=== PATIENT | female | born 1960 | race Caucasian/White ===

== ENCOUNTER 2021-10-09 18:26 | Emergency (ER) | payer SELFPAY ==
[~2021-10-09] VITALS: Ht 172.7 cm; Wt 159.6 kg
--- NOTE | 2021-10-09 18:35 | ED General ---
General Chief Complaint: Respiratory Problems Stated Complaint: SOB History of Present Illness Date Seen by Provider: Oct 09, 2021 Time Seen by Provider: 18:35 Initial Comments 60-year-old female presents with cough, wheezing and shortness of breath. Patient has known COPD. She used inhaler around noon today. She reports over the last 3 days she has been moving and symptoms of gotten worse. Patient reports that she is feeling a little bit of chest tightness that was worse yesterday of little bit today. Patient denies any fevers or chills. No nausea or vomiting. Patient continues to smoke a pack cigarettes a day with additional frequent marijuana use. Allergies and Home Medications Allergies Coded Allergies: No Known Drug Allergies (Unverified , 10/09/21) Patient Home Medication List Home Medication List Reviewed: Yes Review of Systems Review of Systems Constitutional: No chills, No diaphoresis, No fever Respiratory: cough, short of breath, wheezing Cardiovascular: chest pain Gastrointestinal: no symptoms reported Genitourinary: no symptoms reported Musculoskeletal: no symptoms reported Skin: no symptoms reported Psychiatric/Neurological: No Symptoms Reported Hematologic/Lymphatic: No Symptoms Reported Physical Exam Vital Signs Vital Signs - First Documented 10/09/21 18:30 Temp 35.4 Pulse 100 Resp 22 B/P (MAP) 137/108 (118) Pulse Ox 96 O2 Delivery Room Air Capillary Refill : Height, Weight, BMI Height: '" Weight: lbs. oz. 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 Skin: Normal Color, Warm/Dry Progress/Results/Core Measures Suspected Sepsis SIRS Temperature: Pulse: Respiratory Rate: Laboratory Tests 10/09/21 18:55: White Blood Count 8.6 Blood Pressure / Mean: Laboratory Tests 10/09/21 18:55: Creatinine 0.87, Platelet Count 299, Total Bilirubin 0.5 Results/Orders Lab Results Laboratory Tests Test 10/09/21 18:55 Range/Units White Blood Count 8.6 4.3-11.0 10^3/uL Red Blood Count 4.83 3.80-5.11 10^6/uL Hemoglobin 15.1 11.5-16.0 g/dL Hematocrit 45 35-52 % Mean Corpuscular Volume 93 80-99 fL Mean Corpuscular Hemoglobin 31 25-34 pg Mean Corpuscular Hemoglobin Concent 34 32-36 g/dL Red Cell Distribution Width 13.1 10.0-14.5 % Platelet Count 299 130-400 10^3/uL Mean Platelet Volume 10.5 9.0-12.2 fL Immature Granulocyte % (Auto) 0 % Neutrophils (%) (Auto) 64 42-75 % Lymphocytes (%) (Auto) 27 12-44 % Monocytes (%) (Auto) 6 0-12 % Eosinophils (%) (Auto) 3 0-10 % Basophils (%) (Auto) 1 0-10 % Neutrophils # (Auto) 5.5 1.8-7.8 X 10^3 Lymphocytes # (Auto) 2.3 1.0-4.0 X 10^3 Monocytes # (Auto) 0.5 0.0-1.0 X 10^3 Eosinophils # (Auto) 0.2 0.0-0.3 10^3/uL Basophils # (Auto) 0.1 0.0-0.1 10^3/uL Immature Granulocyte # (Auto) 0.0 0.0-0.1 10^3/uL Sodium Level 135 135-145 MMOL/L Potassium Level 4.9 3.6-5.0 MMOL/L Chloride Level 102 98-107 MMOL/L Carbon Dioxide Level 24 21-32 MMOL/L Anion Gap 9 5-14 MMOL/L Blood Urea Nitrogen 9 7-18 MG/DL Creatinine 0.87 0.60-1.30 MG/DL Estimat Glomerular Filtration Rate 67 BUN/Creatinine Ratio 10 Glucose Level 110 H 70-105 MG/DL Calcium Level 9.0 8.5-10.1 MG/DL Corrected Calcium 9.3 8.5-10.1 MG/DL Total Bilirubin 0.5 0.1-1.0 MG/DL Aspartate Amino Transf (AST/SGOT) 17 5-34 U/L Alanine Aminotransferase (ALT/SGPT) 10 0-55 U/L Alkaline Phosphatase 99 40-136 U/L Troponin I < 0.30 <0.30 NG/ML Total Protein 7.9 6.4-8.2 GM/DL Albumin 3.6 3.2-4.5 GM/DL My Orders Orders - DINA OSUNA DO Cbc With Automated Diff (10/09/21 18:38) Comprehensive Metabolic Panel (10/09/21 18:38) Troponin I Fs (10/09/21 18:38) Ekg Tracing (10/09/21 18:38) Monitor-Rhythm Ecg Trace Only (10/09/21 18:38) Albuterol/Ipra Inhalation Soln (Duoneb I (10/09/21 18:45) Svn Small Volume Nebulizer (10/09/21 18:38) Chest Pa/Lat (2 View) (10/09/21 18:38) Medications Given in ED Current Medications Medications Dose Ordered Sig/Abdi Route Start Time Stop Time Status Last Admin Dose Admin Albuterol/ Ipratropium 3 ml ONCE ONCE INH 10/09/21 18:45 10/09/21 18:46 DC 10/09/21 18:52 3 ML Vital Signs/I&O 10/09/21 10/09/21 18:30 19:15 Temp 35.4 Pulse 100 92 Resp 22 18 B/P (MAP) 137/108 (118) 153/87 Pulse Ox 96 95 O2 Delivery Room Air Room Air Capillary Refill : Progress Note : Progress Note Patient with no acute findings on her EKG or labs with a negative troponin. Patient symptoms been gone for couple days. Is very consistent with a COPD exacerbation. I will prescribe her prednisone and azithromycin. She should use her inhaler as needed. She is stable and discharged home ECG Initial ECG Impression Date: Oct 09, 2021 Initial ECG Impression Time: 18:47 Initial ECG Rate: 101 Initial ECG Rhythm: S.Tach Initial ECG Intervals: Normal Comment mild sinus tach, no st changes, normal ekg Diagnostic Imaging Diagonstic Imaging: Xray Plain Films/CT/US/NM/MRI: chest Comments CHEST PA/LAT (2 VIEW) EXAMINATION: Chest (PA and lateral). CLINICAL INDICATION: 60-year-old female, shortness breath, chest tightness. COMPARISON: None. FINDINGS: Heart size and mediastinal contours are unremarkable. There is no identified pneumothorax. There is no pleural effusion. There is no identified focal airspace consolidation. IMPRESSION: No identified acute cardiopulmonary abnormality. Reviewed: Reviewed by Me, Reviewed/Discussed Departure Impression Primary Impression: COPD with exacerbation Disposition: HOME, SELF-CARE Condition: Stable Departure-Patient Inst. Referrals: MILLY GAY DO (PCP/Family) Primary Care Physician Patient Instructions: Risk Factors for COPD, COPD Exacerbation, Adult ED Add. Discharge Instructions: Use your inhaler every 4 hours while awake for 24 hours then as needed Follow-up with your primary care provider as needed if symptoms not improving in the next 3 to 4 days All discharge instructions reviewed with patient and/or family. Voiced understanding. Scripts Prednisone (Prednisone) 20 Mg Tab 40 MG PO DAILY, #6 TAB 0 Refills Prov: DINA OSUNA DO 10/09/21 Azithromycin (Azithromycin) 250 Mg Tablet 250 MG PO UD, #6 TAB TAKE 2 TABLETS ON DAY ONE THEN TAKE 1 TABLET DAILY FOR FOUR MORE DAYS Prov: DINA OSUNA DO 10/09/21 DINA OSUNA DO Oct 09, 2021 18:35
[2021-10-09] MEDS ORDERED: RT-ALBUTEROL/IPRATROPIUM 3 ML (DUONEB) VIAL INH ONE (18:45)
--- NOTE | 2021-10-09 19:06 | Diagnostic Imaging Report ---
EXAMINATION: Chest (PA and lateral). CLINICAL INDICATION: 60-year-old female, shortness breath, chest tightness. COMPARISON: None. FINDINGS: Heart size and mediastinal contours are unremarkable. There is no identified pneumothorax. There is no pleural effusion. There is no identified focal airspace consolidation. IMPRESSION: No identified acute cardiopulmonary abnormality. Dictated by: Dictated on workstation # [id number]
[2021-10-09 19:09] LABS: BASOPHILS # (AUTO) 0.1 10^3/uL (0.0-0.1); BASOPHILS % (AUTO) 1 % (0-10); EOSINOPHILS # (AUTO) 0.2 10^3/uL (0.0-0.3); EOSINOPHILS % (AUTO) 3 % (0-10); HEMATOCRIT 45 % (35-52); HEMOGLOBIN 15.1 g/dL (11.5-16.0); LYMPHOCYTES # (AUTO) 2.3 X 10^3 (1.0-4.0); LYMPHOCYTES % (AUTO) 27 % (12-44); MEAN CORPUSCULAR HEMOGLOBIN 31 pg (25-34); MEAN CORPUSCULAR HGB CONC 34 g/dL (32-36); MEAN CORPUSCULAR VOLUME 93 fL (80-99); MEAN PLATELET VOLUME 10.5 fL (9.0-12.2); MONOCYTES # (AUTO) 0.5 X 10^3 (0.0-1.0); MONOCYTES % (AUTO) 6 % (0-12); NEUTROPHILS # (AUTO) 5.5 X 10^3 (1.8-7.8); NEUTROPHILS % (AUTO) 64 % (42-75); PLATELET COUNT 299 10^3/uL (130-400); WHITE BLOOD COUNT 8.6 10^3/uL (4.3-11.0)
[2021-10-09 19:27] LABS: ALANINE AMINOTRANSFERASE 10 U/L (0-55); ALBUMIN 3.6 GM/DL (3.2-4.5); ALKALINE PHOSPHATASE 99 U/L (40-136); BILIRUBIN,TOTAL 0.5 MG/DL (0.1-1.0); BUN/CREATININE RATIO 10; CARBON DIOXIDE 24 MMOL/L (21-32); CHLORIDE 102 MMOL/L (98-107); CREATININE SERUM 0.87 MG/DL (0.60-1.30); GFR ESTIMATED 67; GLUCOSE 110 MG/DL (70-105); POTASSIUM 4.9 MMOL/L (3.6-5.0); SODIUM 135 MMOL/L (135-145); TOTAL PROTEIN 7.9 GM/DL (6.4-8.2)
[2021-10-09] MEDS ORDERED: PRD20T PO (19:43)
[2021-10-09] MEDS ORDERED: AZIT250T12 PO (19:43)
[2021-10-09 19:50] VITALS: BP 143/80
== END 2021-10-09 19:50 | disposition home or self-care (01) ==
LOC: ER FS 18:28
DX: J44.1 Chronic obstructive pulmonary disease with (acute) exacerbation (principal); E66.9 Obesity, unspecified; F17.210 Nicotine dependence, cigarettes, uncomplicated
CPT/HCPCS: 36415; 71046; 80053; 84484; 85025; 93041

== ENCOUNTER 2022-10-29 16:29 | Emergency (ER) | payer SELFPAY ==
[~2022-10-29] VITALS: Ht 170.2 cm; Wt 159.3 kg
[~2022-10-29 16:29] MED LIST: AZIT250T12 PO; PRD20T PO
[2022-10-29 16:30] VITALS: BP 212/102
--- NOTE | 2022-10-29 16:44 | ED Cough/URI ---
General Chief Complaint: Fever-Adult/Adol Stated Complaint: FEVER,COUGH,CHILLS Source: patient Exam Limitations: no limitations History of Present Illness Date Seen by Provider: Oct 29, 2022 Time Seen by Provider: 16:30 Initial Comments Patient is 62-year-old female active smoker with a history of COPD medical noncompliance who presents with productive cough with clear sputum for the past several days with increased shortness of breath over the past 2 weeks. Patient has been out of her albuterol inhaler for over a month. Patient reports subjective fever for the past 3 days. Denies chest pain palpitations, nausea vomiting or sweats. No dizziness or lightheadedness. No leg pain or swelling. No other acute symptoms or complaints. Timing/Duration: getting worse Severity/Quality: other Prior Episodes/Possible Cause: other Modifying Factors: Improves With Other Associated Symptoms: other Allergies and Home Medications Allergies Coded Allergies: No Known Drug Allergies (Unverified , 10/09/21) Patient Home Medication List Home Medication List Reviewed: Yes Azithromycin (Azithromycin) 250 Mg Tablet, 250 MG PO UD Prescribed by: DINA OSUNA on 10/09/211942 Prednisone (Prednisone) 20 Mg Tab, 40 MG PO DAILY Prescribed by: DINA OSUNA on 10/09/211942 Review of Systems Review of Systems Constitutional: see HPI EENTM: see HPI Respiratory: see HPI Cardiovascular: see HPI Gastrointestinal: see HPI Genitourinary: see HPI Musculoskeletal: see HPI Skin: see HPI Psychiatric/Neurological: See HPI Hematologic/Lymphatic: See HPI Immunological/Allergic: see HPI All Other Systems Reviewed Negative Unless Noted: No Past Exwngjd-Laeosw-Fiayox Hx Patient Social History Tobacco Use?: Yes Immunizations Up To Date First/Initial COVID19 Vaccinat: Not Currently Vaccinated Past Medical History Surgery/Hospitalization HX: COPD; Fibromyalgia; Neuropathy; chronic back pain; arthritis. Eye surgery; T & A; Tubal; Maria De Jesus; Carpal Tunnle. Physical Exam Vital Signs - First Documented 10/29/22 16:30 Temp 37.4 Pulse 94 Resp 24 B/P (MAP) 212/102 (138) Pulse Ox 95 O2 Delivery Room Air Capillary Refill : Height: '" Weight: lbs. oz. kg; 53.00 BMI Method: General Appearance: WD/WN, no apparent distress Eyes: Bilateral Eye Normal Inspection, Bilateral Eye PERRL, Bilateral Eye EOMI HEENT: PERRL/EOMI, pharynx normal Neck: non-tender, supple Respiratory: no respiratory distress, decreased breath sounds Cardiovascular: normal peripheral pulses, regular rate, rhythm Gastrointestinal: non tender, soft Extremities: non-tender Neurologic/Psychiatric: rn supplemental II-XII nml as tested, no motor/sensory deficits, alert, oriented x 3 Skin: normal color, warm/dry Lymphatic: no adenopathy Focused Exam Sepsis Stage: Ruled Out Progress/Results/Core Measures Suspected Sepsis SIRS Temperature: Pulse: Respiratory Rate: Blood Pressure / Mean: Results/Orders Lab Results Laboratory Tests Test 10/29/22 16:43 Range/Units Influenza Type A (RT-PCR) Not Detected Not Detecte Influenza Type B (RT-PCR) Not Detected Not Detecte SARS-CoV-2 RNA (RT-PCR) Not Detected Not Detecte My Orders Orders - BILLY SORENSON DO Chest Pa/Lat (2 View) (10/29/22 16:35) Covid 19 Inhouse Test (10/29/22 16:35) Influenza A And B By Pcr (10/29/22 16:35) Isolation Central Supply Req (10/29/22 16:35) Prednisone Tablet (Deltasone Tablet) (10/29/22 16:45) Medications Given in ED Current Medications Medications Dose Ordered Sig/Abdi Route Start Time Stop Time Status Last Admin Dose Admin Prednisone 50 mg ONCE ONCE PO 10/29/22 16:45 10/29/22 16:46 DC 10/29/22 16:45 50 MG Vital Signs/I&O 10/29/22 16:30 Temp 37.4 Pulse 94 Resp 24 B/P (MAP) 212/102 (138) Pulse Ox 95 O2 Delivery Room Air Capillary Refill : Departure Communication (Admissions) Chest x-ray: No acute cardiopulmonary disease per radiology report. Influenza/COVID-negative. Chest x-ray nonacute. Patient with acute viral syndrome with bronchitis and COPD exacerbation. Vital signs stable in the emergency department. Steroids given. Will refill the patient's inhalers and continued therapeutic care with instructions to follow-up with local PCP and limit all tobacco use. Return precautions reviewed. Patient verbalizes understanding and agreement to discharge instructions prior to ED discharge. Impression Primary Impression: Acute viral syndrome Additional Impression: COPD with exacerbation Disposition: HOME, SELF-CARE Condition: Stable Departure-Patient Inst. Decision time for Depature: 17:15 Referrals: MILLY GAY DO (PCP/Family) Primary Care Physician Patient Instructions: Chronic Obstructive Pulmonary Disease (COPD), Including Emphysema, Viral Syndrome (DC) Add. Discharge Instructions: You were evaluated in the emergency department for fever cough and shortness of breath. Chest x-ray and a COVID and influenza test were performed and are nondiagnostic. Your symptoms are consistent with acute and acute viral syndrome with bronchitis and COPD exacerbation. Please fill medications upon leaving the emergency department and take as directed. Limit all tobacco use and follow-up with your local primary care physician in 3 to 5 days for reevaluation. In the meantime if you develop new or worsening symptoms, return to the emergency department. All discharge instructions reviewed with patient and/or family. Voiced understanding. Scripts Albuterol Sulfate (Proventil Hfa) 6.7 Gm Hfa.aer.ad 2 PUFF INH Q6H for SHORTNESS OF BREATH, #1 EACH Prov: BILLY SORENSON DO 10/29/22 Prednisone (Prednisone) 20 Mg Tab 40 MG PO DAILY, #6 TAB 0 Refills Prov: BILLY SORENSON DO 10/29/22 BILLY SORENSON DO Oct 29, 2022 16:44
[2022-10-29] MEDS ORDERED: predniSONE 20 MG TAB PO ONE (16:45)
--- NOTE | 2022-10-29 16:59 | Diagnostic Imaging Report ---
EXAMINATION: Chest (PA and lateral). CLINICAL INDICATION: 62-year-old female, cough. COMPARISON: October 09, 2021. FINDINGS: Right size and mediastinal contours are unchanged. There is no identified pneumothorax. There is no pleural effusion. There is no identified focal airspace consolidation. IMPRESSION: No identified acute cardiopulmonary abnormality. Dictated by: Dictated on workstation # [id number]
[2022-10-29] MEDS ORDERED: PRD20T PO (17:17)
[2022-10-29] MEDS ORDERED: RT-ALBUINH INH (17:17)
== END 2022-10-29 17:20 | disposition home or self-care (01) ==
LOC: ER FS 16:29
DX: J44.1 Chronic obstructive pulmonary disease with (acute) exacerbation (principal); B34.9 Viral infection, unspecified; F17.200 Nicotine dependence, unspecified, uncomplicated; Z20.822 Contact with and (suspected) exposure to COVID-19; Z28.310 Unvaccinated for COVID-19
CPT/HCPCS: 71046; 87636

== ENCOUNTER 2023-06-05 09:40 | Emergency (ER) | payer OTHER ==
[~2023-06-05 09:40] MED LIST changes: +RT-ALBUINH INH
[2023-06-05] MEDS ORDERED: FAMOTIDINE 20 MG TABLET PO STA (09:47)
--- NOTE | 2023-06-05 09:51 | ED Chest Pain ---
General Stated Complaint: CHEST PAIN Source: patient, police Exam Limitations: no limitations History of Present Illness Date Seen by Provider: Jun 05, 2023 Time Seen by Provider: 09:43 Initial Comments 62-year-old female with past medical history most notable for COPD coming in with chest discomfort radiating to her left arm. Started early this morning and has been ongoing for several hours she states. The patient was unfortunately incarcerated yesterday, and the pain started today. Denies any cardiac history that she knows of, no stents in her heart. Denies any prior history of DVT or PE, no recent surgery, no lower extremity swelling or pain, no hemoptysis, fever, shortness of breath, abdominal pain, nausea, vomiting, diarrhea, weakness, numbness, or any other concerns. Allergies and Home Medications Allergies Coded Allergies: No Known Drug Allergies (Unverified , 10/09/21) Patient Home Medication List Home Medication List Reviewed: Yes Albuterol Sulfate (Proventil Hfa) 6.7 Gm Hfa.aer.ad, 2 PUFF INH Q6H Prescribed by: BILLY SORENSON on 10/29/221716 Azithromycin (Azithromycin) 250 Mg Tablet, 250 MG PO UD Prescribed by: DINA OSUNA on 10/09/211942 Prednisone (Prednisone) 20 Mg Tab, 40 MG PO DAILY Prescribed by: DINA OSUNA on 10/09/211942 Prednisone (Prednisone) 20 Mg Tab, 40 MG PO DAILY Prescribed by: BILLY SORENSON on 10/29/221716 Review of Systems Review of Systems Constitutional: No fever EENTM: No Symptoms Reported Respiratory: No Symptoms Reported Cardiovascular: See HPI Gastrointestinal: No Symptoms Reported Genitourinary: No Symptoms Reported Musculoskeletal: no symptoms reported Skin: no symptoms reported Psychiatric/Neurological: No Symptoms Reported Endocrine: No Symptoms Reported Hematologic/Lymphatic: No Symptoms Reported Past Slkpmel-Wqmemj-Qiigyl Hx Patient Social History Tobacco Use?: Yes Tobacco type used: Cigarettes Immunizations Up To Date First/Initial COVID19 Vaccinat: Not Currently Vaccinated Second COVID19 Vaccination Ismael: Not Currently Vaccinated Third COVID19 Vaccination Date: Not Currently Vaccinated Past Medical History Surgery/Hospitalization HX: COPD; Fibromyalgia; Neuropathy; chronic back pain; arthritis. Eye surgery; T & A; Tubal; Maria De Jesus; Carpal Tunnle. Surgeries: Yes Gallbladder Physical Exam Vital Signs Vital Signs - First Documented 06/05/23 09:43 Temp 37.1 Pulse 79 Resp 15 B/P (MAP) 154/74 (100) Pulse Ox 94 O2 Delivery Room Air Capillary Refill : Height, Weight, BMI Height: '" Weight: lbs. oz. kg; 54.00 BMI Method: General Appearance: No Apparent Distress, Obese HEENT: PERRL/EOMI, Normal ENT Inspection, Pharynx Normal Neck: Full Range of Motion, Normal Inspection, Non Tender, Supple Respiratory: Chest Non Tender, Lungs Clear, Normal Breath Sounds, No Accessory Muscle Use, No Respiratory Distress Cardiovascular: Regular Rate, Rhythm, No Edema, Normal Peripheral Pulses Gastrointestinal: Normal Bowel Sounds, Non Tender, Soft; No Distended, No Guarding Extremity: Normal Capillary Refill, Normal Inspection, Normal Range of Motion, Non Tender, No Calf Tenderness, No Pedal Edema Neurologic/Psychiatric: Alert, No Motor/Sensory Deficits, Normal Mood/Affect Skin: Normal Color, Warm/Dry Progress/Results/Core Measures Results/Orders Lab Results Laboratory Tests Test 06/05/23 09:49 Range/Units White Blood Count 8.2 4.3-11.0 10^3/uL Red Blood Count 5.00 3.80-5.11 10^6/uL Hemoglobin 15.5 11.5-16.0 g/dL Hematocrit 47 35-52 % Mean Corpuscular Volume 93 80-99 fL Mean Corpuscular Hemoglobin 31 25-34 pg Mean Corpuscular Hemoglobin Concent 33 32-36 g/dL Red Cell Distribution Width 13.2 10.0-14.5 % Platelet Count 265 130-400 10^3/uL Mean Platelet Volume 10.3 9.0-12.2 fL Immature Granulocyte % (Auto) 0 % Neutrophils (%) (Auto) 73 42-75 % Lymphocytes (%) (Auto) 20 12-44 % Monocytes (%) (Auto) 5 0-12 % Eosinophils (%) (Auto) 1 0-10 % Basophils (%) (Auto) 1 0-10 % Neutrophils # (Auto) 6.0 1.8-7.8 10^3/uL Lymphocytes # (Auto) 1.7 1.0-4.0 10^3/uL Monocytes # (Auto) 0.4 0.0-1.0 10^3/uL Eosinophils # (Auto) 0.1 0.0-0.3 10^3/uL Basophils # (Auto) 0.1 0.0-0.1 10^3/uL Immature Granulocyte # (Auto) 0.0 0.0-0.1 10^3/uL Prothrombin Time 13.0 12.2-14.7 SEC INR Comment 0.9 0.8-1.4 Activated Partial Thromboplast Time 24 24-35 SEC Sodium Level 136 135-145 MMOL/L Potassium Level 4.5 3.6-5.0 MMOL/L Chloride Level 102 98-107 MMOL/L Carbon Dioxide Level 23 21-32 MMOL/L Anion Gap 11 5-14 MMOL/L Blood Urea Nitrogen 9 7-18 MG/DL Creatinine 0.78 0.60-1.30 MG/DL Estimat Glomerular Filtration Rate 86 BUN/Creatinine Ratio 12 Glucose Level 106 H 70-105 MG/DL Calcium Level 9.4 8.5-10.1 MG/DL Corrected Calcium 9.9 8.5-10.1 MG/DL Magnesium Level 2.4 1.6-2.4 MG/DL Total Bilirubin 0.5 0.1-1.0 MG/DL Aspartate Amino Transf (AST/SGOT) 23 5-34 U/L Alanine Aminotransferase (ALT/SGPT) 15 0-55 U/L Alkaline Phosphatase 94 40-136 U/L Troponin I < 0.30 <0.30 NG/ML Total Protein 7.2 6.4-8.2 GM/DL Albumin 3.4 3.2-4.5 GM/DL Lipase 15 8-78 U/L My Orders Orders - JREEL RAMSAY MD Cbc With Automated Diff (06/05/23 09:47) Magnesium (06/05/23 09:47) Chest 1 View Ap/Pa Only (06/05/23 09:47) Ekg Tracing (06/05/23 09:47) Comprehensive Metabolic Panel (06/05/23 09:47) Protime With Inr (06/05/23 09:47) Partial Thromboplastin Time (06/05/23 09:47) O2 (06/05/23 09:47) Monitor-Rhythm Ecg Trace Only (06/05/23 09:47) Aspirin Chewable Tablet (Aspirin Chewabl (06/05/23 10:00) Ed Iv/Invasive Line Start (06/05/23 09:47) Lipase (06/05/23 09:47) Troponin I Fs (06/05/23 09:47) Famotidine Tablet (Famotidine Tablet) (06/05/23 09:47) Antacid Suspension (Mylanta Suspension (06/05/23 10:00) Albuterol/Ipra Inhalation Soln (Duoneb I (06/05/23 10:00) Medications Given in ED Current Medications Medications Dose Ordered Sig/Abdi Route Start Time Stop Time Status Last Admin Dose Admin Al Hydrox/Mg Hydrox/Simethicone 30 ml ONCE ONCE PO 06/05/23 10:00 06/05/23 10:01 DC 06/05/23 10:03 30 ML Albuterol/ Ipratropium 3 ml ONCE ONCE INH 06/05/23 10:00 06/05/23 10:01 DC 06/05/23 10:03 3 ML Aspirin 324 mg ONCE ONCE PO 06/05/23 10:00 06/05/23 10:01 DC 06/05/23 10:01 324 MG Vital Signs/I&O 06/05/23 09:43 Temp 37.1 Pulse 79 Resp 15 B/P (MAP) 154/74 (100) Pulse Ox 94 O2 Delivery Room Air Progress Progress Note : Progress Note 62-year-old female with above history coming in due to chest pain. ABCs were intact and vitals were stable on presentation. Physical exam reassuring with no acute abnormality, specifically no clinical signs of a DVT. EKG ordered and interpreted by me showing no acute ischemic changes. Chest x-ray ordered and interpreted by me showing no pneumothorax, normal cardiac silhouette, no obvious pneumonia. An IV was placed and basic labs were obtained including cardiac biomarkers. Troponin is negative, creatinine normal, white blood cell count unremarkable. She would be low risk for PE per [place] criteria and I think a PE is very unlikely at this time. Very unlikely to be ACS given the negative t roponin with constant pain for several hours. I believe she is otherwise stable for discharge with outpatient follow-up. She was sent back to the shelter with strict return precautions. Initial ECG Impression Date: Jun 05, 2023 Initial ECG Impression Time: 09:46 Initial ECG Rate: 82 Initial ECG Rhythm: Normal Sinus Comment Narrow QRS, normal axis, no significant ST changes or T wave abnormalities Diagnostic Imaging Diagonstic Imaging: Xray (chest) Departure Impression Primary Impression: Chest pain Qualified Codes: R07.82 - Intercostal pain Disposition: 01 HOME, SELF-CARE Condition: Stable Departure-Patient Inst. Decision time for Depature: 10:45 Referrals: MARTÍNEZ PERALTA MD FACP FAC CCDS NO,LOCAL PHYSICIAN (PCP) Primary Care Physician Patient Instructions: Chest Pain (DC) Add. Discharge Instructions: It does not appear like you are having a life-threatening cause of chest pain at this time. We recommend taking [id number] baby aspirin daily and following up with a financial aid coordinator as an outpatient. Dr. Peralta's number is in this paperwork, you can call and schedule an appointment with him when able. JEREL RAMSAY MD Jun 05, 2023 09:51
[2023-06-05 09:59] LABS: BASOPHILS # (AUTO) 0.1 10^3/uL (0.0-0.1); BASOPHILS % (AUTO) 1 % (0-10); EOSINOPHILS # (AUTO) 0.1 10^3/uL (0.0-0.3); EOSINOPHILS % (AUTO) 1 % (0-10); HEMATOCRIT 47 % (35-52); HEMOGLOBIN 15.5 g/dL (11.5-16.0); LYMPHOCYTES # (AUTO) 1.7 10^3/uL (1.0-4.0); LYMPHOCYTES % (AUTO) 20 % (12-44); MEAN CORPUSCULAR HEMOGLOBIN 31 pg (25-34); MEAN CORPUSCULAR HGB CONC 33 g/dL (32-36); MEAN CORPUSCULAR VOLUME 93 fL (80-99); MEAN PLATELET VOLUME 10.3 fL (9.0-12.2); MONOCYTES # (AUTO) 0.4 10^3/uL (0.0-1.0); MONOCYTES % (AUTO) 5 % (0-12); NEUTROPHILS % (AUTO) 73 % (42-75); PLATELET COUNT 265 10^3/uL (130-400); WHITE BLOOD COUNT 8.2 10^3/uL (4.3-11.0)
[2023-06-05] MEDS ORDERED: ASPIRIN 81 MG CHEWABLE TABLET PO ONE (10:00)
[2023-06-05] MEDS ORDERED: ANTACID SUSP 30 ML UDC (MYLANTA) PO ONE (10:00)
[2023-06-05] MEDS ORDERED: RT-Ipratropium/Albuterol NEB 3 ML VIAL INH ONE (10:00)
[2023-06-05 10:07] LABS: INR 0.9 (0.8-1.4)
[2023-06-05 10:19] LABS: ALANINE AMINOTRANSFERASE 15 U/L (0-55); ALBUMIN 3.4 GM/DL (3.2-4.5); ALKALINE PHOSPHATASE 94 U/L (40-136); BILIRUBIN,TOTAL 0.5 MG/DL (0.1-1.0); BUN/CREATININE RATIO 12; CALCIUM 9.4 MG/DL (8.5-10.1); CARBON DIOXIDE 23 MMOL/L (21-32); CHLORIDE 102 MMOL/L (98-107); CREATININE SERUM 0.78 MG/DL (0.60-1.30); GFR ESTIMATED 86; GLUCOSE 106 MG/DL (70-105); LIPASE 15 U/L (8-78); MAGNESIUM 2.4 MG/DL (1.6-2.4); POTASSIUM 4.5 MMOL/L (3.6-5.0); SODIUM 136 MMOL/L (135-145); TOTAL PROTEIN 7.2 GM/DL (6.4-8.2)
[2023-06-05 10:42] VITALS: BP 123/70
--- NOTE | 2023-06-05 10:46 | Diagnostic Imaging Report ---
INDICATION: Chest pain. TIME OF EXAM: 10:27 a.m. COMPARISON: Comparison is made with prior chest from 10/29/2022. FINDINGS: The heart size is normal. The pulmonary vascularity is unremarkable. The lungs are clear. No infiltrate, effusion or pneumothorax is detected. IMPRESSION: No acute cardiopulmonary process is detected. Dictated by: Dictated on workstation # [id number]
== END 2023-06-05 10:42 ==
LOC: EDUNIT# 09:40 → ER FS 09:42
DX: R07.89 Other chest pain (principal); F17.210 Nicotine dependence, cigarettes, uncomplicated; Z28.310 Unvaccinated for COVID-19
CPT/HCPCS: 36415; 71045; 80053; 83690; 83735; 84484; 85025; 85610; 85730; 93005; 93041